=== PATIENT | female | born 1975 | race African-American/Black ===

== ENCOUNTER 2022-09-29 19:30 | Emergency (ER) | payer SELFPAY ==
[~2022-09-29] VITALS: Ht 162.6 cm; Wt 65.8 kg
[2022-09-29 19:44] VITALS: BP 134/70
--- NOTE | 2022-09-29 20:47 | NUR ---
LIZBET PETERSON ([facility])
[2022-09-29] MEDS ORDERED: CARISOPRODOL 350 MG TABLET ONE (21:18)
[2022-09-29] MEDS ORDERED: oxyCODONE/APAP (5/325 MG) 1 UDTAB TABLET ONE (21:18)
[2022-09-29] MEDS: oxyCODONE/APAP (5/325 MG) 1 UDTAB TABLET PO ONE (21:27)
[2022-09-29] MEDS: CARISOPRODOL 350 MG TABLET PO ONE (21:27)
== END 2022-09-29 21:39 | disposition home or self-care (01) ==
LOC: ER 19:35
DX: G89.29 Other chronic pain (principal); F20.9 Schizophrenia, unspecified; Z88.0 Allergy status to penicillin; Z60.2 Problems related to living alone